=== PATIENT | female | born 1995 | race Caucasian/White ===

== ENCOUNTER 2023-01-30 14:15 | Emergency (ER) | payer MEDICAID ==
[~2023-01-30] VITALS: Ht 154.9 cm; Wt 59.0 kg
[2023-01-30 14:21] VITALS: BP 116/53
--- NOTE | 2023-01-30 14:35 | NUR ---
BIB SELF C/O RASH ON BACK X 3 DAYS. SEEN AT [facility] YESTERDAY FOR SHINGLES SUSPECTED, MUSCULOSKELETAL PAIN *& GOT HYDROCORTISONE, IBUPROFEN, VALACYCLOVIR. PMH:DENIES
[2023-01-30 15:45] VITALS: BP 119/61
--- NOTE | 2023-01-30 15:45 | NUR ---
Patient discharged with v/s stable. Written and verbal after care instructions given and explained. Patient verbalized understanding. Ambulatory with steady gait. All questions addressed prior to discharge. Advised to follow up with PMD.
== END 2023-01-30 15:45 | disposition home or self-care (01) ==
LOC: MED 14:15
DX: M54.12 Radiculopathy, cervical region (principal); R21 Rash and other nonspecific skin eruption; Z79.899 Other long term (current) drug therapy
CPT/HCPCS: 72040; 72072; 81025; 99284